=== PATIENT | male | born 1950 | race Caucasian/White ===

== ENCOUNTER 2016-02-14 06:57 | Day surgery (SDC) | payer MEDICARE, OTHER ==
[2016-02-09 14:17] VITALS: BMI 40.2
[~2016-02-14 06:57] MED LIST: LACTATED RINGERS 1,000 ML IV SCH; LIDOCAINE 1% 20 ML VIAL (10MG/ML) FOR IV START INTRADERMA PRN
[2016-02-14] MEDS ORDERED: LACTATED RINGERS 1,000 ML IV ONE (07:02)
[2016-02-14 07:20] VITALS: TEMP 98.1
[2016-02-14] MEDS ORDERED: PROPOFOL 10 MG/ML 20 ML VIAL IV ONE (08:31)
[2016-02-14] MEDS ORDERED: LIDOCAINE 1% INJ 10MG/ML (20 ML MDV) ONE (08:31)
[2016-02-14 08:57] VITALS: RESP 16
--- NOTE | 2016-02-14 09:01 | P.PCN ---
Date of Procedure: 02/14/16 Procedure(s) Performed: Procedure: Colonoscopy and biopsy. Preoperative diagnosis: Screening for neoplasia, patient has history of polyps. Postoperative diagnosis: 1. Diverticulosis with no evidence of acute diverticulitis or strictures. 2. Diminutive polyp in the distal sigmoid biopsied but no large polyps or cancer. Preparation: HalfLytely prep. Sedation: Was provided by anesthesia. Brief clinical history: The patient is a 65-year-old male who is scheduled for this evaluation for screening for neoplasia because of history of polyps. He had 2 colonoscopies in the past, 5 years ago which did not reveal any polyps, but 3 years prior to that he had adenomatous polyps removed. The patient has no abdominal complaints, bleeding or anemia. Procedure: With the patient on his left lateral decubitus position and after informed consent and adequate sedation, the perianal area was inspected and it did not show any fissures or fistulas. There were no masses felt on digital rectal examination. The Olympus CFQ 160L video colonoscope was then inserted in the rectum in the usual fashion and advanced to the cecum. There were multiple diverticular orifices seen scattered along the length of the bowel, more on the left side, with no evidence of acute diverticulitis or strictures. There was a diminutive polyp in the distal sigmoid which was biopsied but there were no large polyps or tumors. The mucosa appeared healthy. I retroflexed endoscope in the rectum before the endoscope was withdrawn. The patient tolerated the procedure well. Plan: The patient was reassured. Discussed dietary measures. He will follow up with you as planned and I recommended a repeat exam in 5 years.
[2016-02-14 09:21] VITALS: BP 113/76; PULSE 70
== END 2016-02-14 09:35 | disposition home or self-care (01) ==
LOC: ORWHC2ENDO 06:57
DX: Z12.11 Encounter for screening for malignant neoplasm of colon (principal); Z86.010 Personal history of colon polyps; D12.5 Benign neoplasm of sigmoid colon; K57.30 Diverticulosis of large intestine without perforation or abscess without bleeding; I10 Essential (primary) hypertension; G62.9 Polyneuropathy, unspecified; M10.9 Gout, unspecified; F17.200 Nicotine dependence, unspecified, uncomplicated; Z79.82 Long term (current) use of aspirin; Z79.899 Other long term (current) drug therapy
CPT/HCPCS: 88305; 45380; J2001; J2704; 99153

== ENCOUNTER → 2016-11-10 | Outpatient (CLI) | payer MEDICARE, OTHER ==
--- NOTE | 2016-11-10 10:37 | ECHOF ---
Referral Reason:R60.0 localized edema MEASUREMENTS -------- HEIGHT: 182.9 cm WEIGHT: 139.3 kg BP: RVIDd: 3.4 cm (< 3.3) IVSd: 1.3 cm (0.6 - 1.1) LVIDd: 4.5 cm (3.9 - 5.3) LVPWd: 1.4 cm (0.6 - 1.1) IVSs: 1.4 cm LVIDs: 4.4 cm LVPWs: 1.2 cm Ao Diam: 4.1 cm (2.0 - 3.7) AV Cusp: 2.3 cm (1.5 - 2.6) LA Diam: 3.3 cm (2.7 - 3.8) MV EXCURSION: 22.256 mm (> 18.000) MV EF SLOPE: 77 mm/s (70 - 150) EPSS: 0.7 cm MV E Jaguar: 0.48 m/s MV DecT: 238 ms MV A Jaguar: 0.55 m/s MV E/A Ratio: 0.87 RAP: 5.00 mmHg RVSP: 20.73 mmHg FINDINGS -------- Sinus rhythm. Morbid Obesity The left ventricular size is normal. There is mild concentric left ventricular hypertrophy. Overall left ventricular systolic function is normal with, an EF between 55 - 60 %. The right ventricle is mild to moderately enlarged. The left atrial size is normal. The right atrial size is normal. The aortic valve is trileaflet, and appears structurally normal. No aortic stenosis or regurgitation. Mild mitral regurgitation is present. Mild tricuspid regurgitation present. There is no evidence of pulmonary hypertension. The right ventricular systolic pressure, as measured by Doppler, is 20.73mmHg. The pulmonic valve was not well visualized. The aortic root size is normal. There is no pericardial effusion. CONCLUSIONS -------- 1. Morbid Obesity 2. The right ventricular systolic pressure, as measured by Doppler, is 20.73mmHg. 3. The pulmonic valve was not well visualized. 4. The aortic root size is normal. 5. There is no pericardial effusion. 6. The left ventricular size is normal. 7. There is mild concentric left ventricular hypertrophy. 8. Overall left ventricular systolic function is normal with, an EF between 55 - 60 %. 9. The right ventricle is mild to moderately enlarged. 10. The aortic valve is trileaflet, and appears structurally normal. No aortic stenosis or regurgitation. 11. Mild mitral regurgitation is present. 12. Mild tricuspid regurgitation present. 13. There is no evidence of pulmonary hypertension. RITUAL CIRCUMCISER: Lorena Yo RDCS
== END | disposition home or self-care (01) ==
LOC: RADECHMAIN 08:05
PROVIDERS: ATTEND Family Medicine
DX: I08.1 Rheumatic disorders of both mitral and tricuspid valves (principal); E66.01 Morbid (severe) obesity due to excess calories
CPT/HCPCS: 93306

== ENCOUNTER → 2018-08-30 | Outpatient (CLI) | payer MEDICARE, OTHER ==
--- NOTE | 2018-08-30 08:17 | CTL ---
EXAMINATION TYPE: CT Low Dose Lung DATE OF EXAM ORDERED: 08/30/2018 COMPARISON: HISTORY: . Low Dose CT Lung Screening CT DLP: [address] CTDI: 1.68 mGy IV CONTRAST USED: None. SCREENING VISIT: First visit COMPARISON: None. TECHNIQUE: Low dose computed tomography scan was performed through the chest at 1 millimeter thick se ctions and reconstructed images in the coronal plane at [address] DIAGNOSTIC QUALITY: Streak artifact limits portions of the study. FINDINGS: LUNG NODULES: Right lun nodules are identified one within the lower lobe, measures 3.6 mm image 32 and the seco nd within the right upper lobe measures 5 mm image 24. No left-sided nodules are identified. LUNGS: COPD: Severity: Mild Fibrosis: Severity:None Lymph nodes: None Other findings: None RIGHT PLEURAL SPACE: Effusion: None Calcification: None Thickening: None Pneumothorax: None LEFT PLEURAL SPACE: Effusion: None Calcification: None Thickening: None Pneumothorax: None HEART: Heart Size: Mildly enlarged Coronary calcification: Mild Pericardial effusion: None OTHER FINDINGS: Upper abdomen: No significant abnormality Bony thorax: Degenerative changes Supraclavicular region: No significant abnormalityOther: No significant abnormalityI IMPRESSION: 1. 2 nodules are identified right lung. RECOMMENDATION: Follow-up screening in one year. Smoking cessation recommended. CT LUNG RAD: LUNG RAD CATEGORY 2 benign
== END | disposition home or self-care (01) ==
LOC: RADCTMAIN 07:16
PROVIDERS: ATTEND Family Medicine
DX: R91.8 Other nonspecific abnormal finding of lung field (principal); Z87.891 Personal history of nicotine dependence

== ENCOUNTER → 2018-09-13 | Outpatient (CLI) | payer MEDICARE, OTHER ==
[~2018-09-13] MED LIST changes: +DOBUTamine DRIP for NUC MED 500 MG in DEXTROSE/WATER 1 250ML.BAG IV ONE; -LACTATED RINGERS 1,000 ML IV SCH; -LIDOCAINE 1% 20 ML VIAL (10MG/ML) FOR IV START INTRADERMA PRN; +REGADENOSON 0.4 MG/5 ML SYRINGE IV ONE
--- NOTE | 2018-09-13 12:43 | NM ---
"EXAMINATION TYPE: NM stress lexiscan cardiolite DATE OF EXAM: 09/13/2018 COMPARISON: NONE HISTORY: Hypertension TECHNIQUE: After the intravenous administration of 10.11 mCi Tc 99m Sestamibi - Cardiolite resting S PECT images acquired 45 minutes post injection. The patient received 0.4mg Lexiscan, 26.8 mCi Tc 99m Sestamibi - Stress images obtained [address] injection FINDINGS: Review of stress and rest SPECT images demonstrates some mild decreased uptake along the anteroseptal left ventricle on stress as compared to rest images. Decreased radiopharmaceutical uptake is noted along the anterolateral left ventricle on both stress and rest images are perhaps more so on stress i mages compared to rest images Gated analysis shows normal wall motion with an estimated left ventricu lar ejection fraction of 60 %. IMPRESSION: Findings compatible with pharmacologically induced left ventricular myocardial ischemia along the ant eroseptal wall and also possible kelli-infarct pharmacologically induced ischemia inferior wall left v entricle A Yellow level critical message alert has been initiated for Maria R Gloria DO via the [employer] 36 0 | Critical Results System on 09/13/2018 12:40 PM. This message alert has been sent to Maria R Gloria DO via the preferences provided by the clinician for the receipt of Radiology Critical Findings. [facility] ID [id number]."
--- NOTE | 2018-09-13 13:33 | P.STRESS ---
- Stress Test Note Stress Test Results/Findings: Exam Performed: NM stress lexiscan cardiolite Exam Date: 09/13/18 Reason for Exam: CHEST PAIN/SHORT OF BREATH Height: 6 ft 1 in Weight: 141.521 kg Protocol: LEXISCAN Stage: N/A Duration of Exercise: 5 MINUTES Resting Heart Rate: 59 Resting Blood Pressure: 100/68 Maximum Achieved Heart Rate: 76 Maximum Achieved Blood Pressure: 123/61 85% PMHR: N/A 100% PMHR: N/A METS: N/A Technologist Comment: Stress Test Results/Findings: Baseline heart rate 59 beats a minute Baseline blood pressure 100/68 mmHg Twelve-lead ECG shows sinus rhythm with normal ST segments Patient received Lexiscan infusion per protocol No ST segment abnormalities noted no arrhythmias noted Nuclear portion will be reported separately Dobutamine stress echo was canceled on account of an enlarged aortic root of about 4.5 cm
--- NOTE | 2018-09-13 19:29 | ECHOF ---
Referral Reason:I25.9 Chronic ischemic heart disease, unspecified MEASUREMENTS -------- HEIGHT: 185.4 cm WEIGHT: 141.5 kg BP: RVIDd: 3.4 cm (< 3.3) IVSd: 1.2 cm (0.6 - 1.1) LVIDd: 4.8 cm (3.9 - 5.3) LVPWd: 1.3 cm (0.6 - 1.1) IVSs: 1.9 cm LVIDs: 3.4 cm LVPWs: 2.0 cm Ao Diam: 4.5 cm (2.0 - 3.7) AV Cusp: 2.5 cm (1.5 - 2.6) LA Diam: 2.9 cm (2.7 - 3.8) EPSS: 0.7 cm MV E Jaguar: 0.51 m/s MV DecT: 283 ms MV A Jaguar: 0.60 m/s MV E/A Ratio: 0.84 RAP: 5.00 mmHg RVSP: 39.56 mmHg MV EF SLOPE: 103.35 mm/s (70 - 150) MV EXCURSION: 1.95 cm (> 18.000) FINDINGS -------- Sinus rhythm. This was a technically difficult study with suboptimal views. The left ventricular size is normal. There is mild concentric left ventricular hypertrophy. Overa ll left ventricular systolic function is normal with, an EF between 55 - 60 %. The right ventricle is normal in size. The left atrial size is normal. The right atrium was not well visualized. Lumason used Interatrial and interventricular septum intact. The aortic valve is trileaflet and appears structurally normal. There is mild aortic valve sclerosi s without stenosis. There is no evidence of aortic regurgitation. There is no evidence of aortic stenosis. Mild mitral annular calcification present. Mild tricuspid regurgitation present. There is mild pulmonary hypertension. The right ventricular systolic pressure, as measured by Doppler, is 39.56mmHg. There is no pulmonic regurgitation present. The aortic root and ascending aorta are dilated measuring up to (enter manually) mm. There is no pericardial effusion. CONCLUSIONS -------- 1. Sinus rhythm. 2. This was a technically difficult study with suboptimal views. 3. The left ventricular size is normal. 4. There is mild concentric left ventricular hypertrophy. 5. Overall left ventricular systolic function is normal with, an EF between 55 - 60 %. 6. The right ventricle is normal in size. 7. The left atrial size is normal. 8. The right atrium was not well visualized. 9. Lumason used 10. Interatrial and interventricular septum intact. 11. The aortic valve is trileaflet and appears structurally normal. 12. There is mild aortic valve sclerosis without stenosis. 13. There is no evidence of aortic regurgitation. 14. There is no evidence of aortic stenosis. 15. Mild mitral annular calcification present. 16. Mild tricuspid regurgitation present. 17. There is mild pulmonary hypertension. 18. The right ventricular systolic pressure, as measured by Doppler, is 39.56mmHg. 19. There is no pulmonic regurgitation present. 20. The aortic root and ascending aorta are dilated measuring up to (enter manually) mm. 21. There is no pericardial effusion. MERCHANDISE COMPLAINT ADJUSTER: Suzy Bravo RDCS
== END | disposition home or self-care (01) ==
LOC: RADNMMAIN 08:53
PROVIDERS: ATTEND Family Medicine
DX: I08.3 Combined rheumatic disorders of mitral, aortic and tricuspid valves (principal); I27.20 Pulmonary hypertension, unspecified; I10 Essential (primary) hypertension
CPT/HCPCS: 93017; 78452; C8929; A9500; J2785; Q9950; 93306

== ENCOUNTER → 2018-09-17 | Outpatient (CLI) | payer MEDICARE, OTHER ==
[2018-09-17 11:03] LABS: HGB 16.5 gm/dL (13.0-17.5); MCH 30.8 pg (25.0-35.0); MCHC 32.3 g/dL (31.0-37.0); MCV 95.4 fL (80.0-100.0); Mean Platelet Volume 7.8; Platelet Count 178 k/uL (150-450); RBC 5.34 m/uL (4.30-5.90); RDW 15.8 % (11.5-15.5); WBC 7.4 k/uL (3.8-10.6)
[2018-09-17 11:11] LABS: African American GFR (CKD) >90 (>60 ml/min/1.73 sqM); Anion Gap 10 mmol/L; Blood Urea Nitrogen 17 mg/dL (9-20); Carbon Dioxide 31 mmol/L (22-30); Chloride 98 mmol/L (98-107); Non-African American GFR(CKD) 79 (>60 ml/min/1.73 sqM); Potassium 4.2 mmol/L (3.5-5.1); Sodium 139 mmol/L (137-145)
== END | disposition home or self-care (01) ==
LOC: LABPAT 09:44
PROVIDERS: ATTEND Internal Medicine Cardiovascular Disease
DX: Z01.812 Encounter for preprocedural laboratory examination (principal); I10 Essential (primary) hypertension; R07.9 Chest pain, unspecified
CPT/HCPCS: 36415; 80051; 82565; 84520; 85027

== ENCOUNTER → 2018-09-27 | Day surgery (SDC) | payer MEDICARE, OTHER ==
[2018-09-24 10:01] VITALS: BMI 40.1
[~2018-09-27] MED LIST changes: +ALPRAZolam 0.25 MG TAB PO PRN; +ALPRAZolam 0.5 MG TAB PO PRN; +ASPIRIN 325 MG TAB PO STA; +ATORVASTATIN 80 MG TAB PO STA; -DOBUTamine DRIP for NUC MED 500 MG in DEXTROSE/WATER 1 250ML.BAG IV ONE; +IOPAMIDOL-370 100ML BTL INJ ONE; +IOPAMIDOL-370 50ML BTL INJ ONE; +LIDOCAINE 1% INJ 10MG/ML (20 ML MDV) ONE; +LIDOCAINE 1% INJ 10MG/ML (20 ML MDV) SQ ONE; +MIDAZOLAM (PF) 2 MG/2 ML VIAL IVP ONE; +NITROGLYCERIN SL TABS 0.4 MG TAB SUBLINGUAL PRN; -REGADENOSON 0.4 MG/5 ML SYRINGE IV ONE; +RX INFO: IV CONTRAST WAS GIVEN 1 EACH MISC MISCELLANE PRN; +SODIUM CHLORIDE 0.9% 1,000 ML IV ONE; +SODIUM CHLORIDE 0.9% 1,000 ML in EMPTY BAG 1 BAG IV ONE; +fentaNYL (PF) 50 MCG/ML 2 ML AMP IVP ONE; +fentaNYL (PF) 50 MCG/ML 2 ML AMP ONE
[2018-09-27 10:05] VITALS: RESP 16; TEMP 97.8
[2018-09-27 17:56] VITALS: BP 118/78; PULSE 64
--- NOTE | 2018-09-27 18:30 | CC ---
CARDIAC CATHETERIZATION REPORT INDICATION: Atypical chest pain and shortness of breath with an abnormal stress test. PROCEDURE NOTE: After obtaining informed consent, left heart catheterization, coronary angiogram and aortogram were performed via the right femoral artery using standard Matti catheters. Patient tolerated the procedure well without any obvious immediate complications. A femoral angiogram was performed and Angio-Seal was deployed for hemostasis. Patient received moderate conscious sedation, and total sedation time was 32 minutes. The right coronary artery had an ectopic origin and we went through multiple catheter exchanges to engage the right coronary artery. Ultimately we selectively engaged the right coronary artery using an Amplatz right catheter. I also performed an aortogram which shows ascending aortic aneurysm. I did this to locate the right coronary artery. FINDINGS: HEMODYNAMICS: Left ventricular end-diastolic pressure is 10 mm. There is no significant gradient across the aortic valve. LEFT VENTRICULOGRAM: Left ventriculogram was not performed. AORTOGRAM: Aortogram was performed to locate the right coronary artery. Ascending aorta appears aneurysmally dilated. ANGIOGRAPHIC DATA: Left main coronary artery is a normal-sized vessel and is free of stenosis. Divides into left anterior descending coronary artery and circumflex coronary artery. Circumflex coronary artery and its branches are free of significant stenosis. LAD shows a 30% stenosis in the proximal part. Right coronary artery is a nondominant vessel and is free of significant stenosis. CONCLUSIONS: 1. Mild nonobstructive coronary artery disease involving left anterior descending coronary artery. 2. Ascending aortic aneurysm. PLAN: I reviewed angiographic data with the patient and told him that his stress test is a false-positive stress test. I am going to perform a CT scan of his chest to assess the ascending aorta, which was noted as dilated on noninvasive testing. MMODL / IJN: [id number] /
--- NOTE | 2018-09-27 18:36 | LTR ---
September 27, 2018 To: Dr. Maria R Gloria Re: Ruben Rodríguez (48) Dear Dr. Gloria, I performed cardiac catheterization on Ruben Rodríguez. A detailed catheterization note is enclosed for your records. In brief, the cardiac catheterization revealed mild nonobstructive coronary artery disease. I believe the patient's stress test is a false- positive stress test. He does have ascending aortic aneurysm, and I will get a CT scan of the chest done sometime next week to accurately assess the aortic root. Thank you for giving us the privilege of participating in the care of this pleasant gentleman. Sincerely, MD JOSE Beth / KONGN: [id number] /
== END ==
LOC: CATHCVL 09:17
PROVIDERS: ATTEND Internal Medicine Cardiovascular Disease
DX: I25.10 Atherosclerotic heart disease of native coronary artery without angina pectoris (principal); R94.39 Abnormal result of other cardiovascular function study; I10 Essential (primary) hypertension; I71.2 Thoracic aortic aneurysm, without rupture; R06.02 Shortness of breath; Z79.899 Other long term (current) drug therapy; Z82.49 Family history of ischemic heart disease and other diseases of the circulatory system
CPT/HCPCS: 93458; 93567; C1760; C1894; C1769; J2001; J3010; Q9967 ×2; J2250

== ENCOUNTER → 2018-10-09 | Outpatient (CLI) | payer MEDICARE, OTHER | END | disposition home or self-care (01) | LOC: RADUSWWP 08:15 | PROVIDERS: ATTEND Family Medicine | DX: I70.213 Atherosclerosis of native arteries of extremities with intermittent claudication, bilateral legs (principal) | CPT/HCPCS: 93922 ==

== ENCOUNTER → 2018-10-14 | Outpatient (CLI) | payer MEDICARE, OTHER ==
[2018-10-14 08:11] LABS: African American GFR (CKD) >90 (>60 ml/min/1.73 sqM); Blood Urea Nitrogen 15 mg/dL (9-20)
--- NOTE | 2018-10-14 10:17 | CT ---
EXAMINATION TYPE: CT angio chest DATE OF EXAM: 10/14/2018 COMPARISON: none HISTORY: Thoracic aortic aneurysm w/o rupture CT DLP: 746.4 mGycm CONTRAST: CTA thoracic aorta with 3-D reconstruction is performed and with IV Contrast, patient injected with 1 00 mL of Isovue 370. Contrast CTA of the thoracic aorta was performed from the lung apex through the upper abdomen. 3D re construction imaging obtained at a separate workstation. CT Chest: THORACIC AORTA: No evidence for thoracic aortic aneurysm. Mild atheromatous changes seen. There is n o evidence for dissection or periaortic collection. LUNGS: The lungs are clear and free of infiltrate or atelectasis. No pulmonary nodule or mass is det ected. No pleural effusion or CT evidence of interstitial lung disease. MEDIASTINUM: No evidence for mediastinal hematoma. The heart is not enlarged. No evidence for med iastinal mass or adenopathy. HILAR STRUCTURES: No evidence for mass. No hilar adenopathy is appreciated. OTHER: No significant abnormality. IMPRESSION- No evidence for thoracic aortic aneurysm.
== END | disposition home or self-care (01) ==
LOC: RADCTMAIN 07:28
PROVIDERS: ATTEND Internal Medicine Cardiovascular Disease
DX: I71.2 Thoracic aortic aneurysm, without rupture (principal)
CPT/HCPCS: 82565; 84520; 71275; 36415; Q9967

== ENCOUNTER → 2021-02-19 | Outpatient (CLI) | payer MEDICARE, OTHER ==
--- NOTE | 2021-02-22 10:27 | MR ---
EXAMINATION TYPE: MR Prostate wo/w con DATE OF EXAM: 02/19/2021 COMPARISON: None. IMAGE QUALITY: . INDICATION: Prostate cancer. PSA: 8.0 ng/ml on March 01, 2020 Recent Biopsy and Date: October 17, 2019 Pathology Report (If Applicable): Right lateral base adenocarcinoma [place] grade 3+4 = 7 involving 1 .6 mm about 40% tissue involvement. Right base adenocarcinoma [place] score 3+4 = 7 involving 0.6 mm, 12% tissue involvement. Right lateral mid adenocarcinoma [place] grade 3+4 = 7 involving 0.8 mm or 8 % tissue involvement. Left base focal high grade PIN. Atypical asymmetric proliferation right transit ional zone biopsies. TECHNIQUE: Examination was performed using a 3T MRI without an endorectal coil. Multiparametric imaging was perf ormed with T2 mutliplanar sequences, axial diffusion weighted imaging and dynamic contrast enhanced i maging, utilizing 13.5 mL intravenous Gadavist gadolinium contrast. FINDINGS: Exam is suboptimal as there is some motion artifact degradation present. PROSTATE VOLUME: 4.0 cm SI x 3.6 cm AP x 4.6 cm LR Vol= 34.7 cc Predicted PSA equals 4.16 PSA DENSITY: 0.23 ng/ml/cc T1 precontrast images show no suspicious hyperintense material to suggest acute blood product which c orrelates with patient's biopsy date. The peripheral zone shows some heterogeneous indistinct areas of hypointense signal on ADC mapping in the mid to basilar segments. Findings extend greater to the left aspect. No increased signal on diff usion weighted images is seen. Transition zone shows overall heterogeneity with more indistinct slight hypointense area on T2 weight ed images mid to apical level on the right slightly bulging anteriorly axial image 19 measuring appro ximately 1.9 x 1.2 cm mid zone to basilar level on coronal images with sagittal increased signal on d iffusion-weighted imaging measuring just over 1.5 cm long axis seen best image 88 series 901. Seminal vesicles are symmetric and felt within normal limits. No adjacent pelvic adenopathy is seen. Bilateral groin lymph nodes are present slightly more prominent on the left. Some diverticula in the sigmoid colon are incidentally seen. IMPRESSION: A focus of clinically significant cancer is thought present. Vague suspicious area mid to basilar reg ion on the right abutting the bladder base. Some limitation from motion artifact. No definitive extra capsular extension. Highest Assessment Category: 4 or 5 MRI Stage: T0 N0 M0 based on review of pelvic images. False negative rates for MRI range from 5-20% depending on risk profile. Assessment Categories: 1 ? Very low (clinically significant cancer is highly unlikely to be present) 2 ? Low (clinically significant cancer is unlikely to be present) 3 ? Intermediate (the presence of clinically significant cancer is equivocal) 4 ? High (clinically significant cancer is likely to be present) 5 ? Very high (clinically significant cancer is highly likely to be present)
== END | disposition home or self-care (01) ==
LOC: RADMRIMAIN 07:48
PROVIDERS: ATTEND Urology
DX: C61 Malignant neoplasm of prostate (principal)
CPT/HCPCS: 72197; A9585

== ENCOUNTER → 2021-03-31 | Outpatient (CLI) | payer MEDICARE, OTHER ==
[2021-03-31 14:53] LABS: Basophils # (A) 0.05 X 10*3/uL (0.00-0.10); Basophils % (A) 0.6 %; Eosinophils # (A) 0.28 X 10*3/uL (0.04-0.35); Eosinophils % (A) 3.6 %; HCT 47.3 % (39.6-50.0); Immature Grans, Automated 0.5 %; Lymphocytes # (A) 1.87 X 10*3/uL (0.90-5.00); Lymphocytes % (A) 24.3 %; MCH 30.1 pg (27.0-32.0); MCHC 31.7 g/dL (32.0-37.0); MCV 94.8 fL (80.0-97.0); Mean Platelet Volume 10.7 fL (9.5-12.2); Monocytes # (A) 0.71 X 10*3/uL (0.20-1.00); Monocytes % (A) 9.2 %; NRBC Per 100 WBC 0 /100 WBCS (0.0-0.0); Neutrophils # (A) 4.75 X 10*3/uL (1.80-7.70); Neutrophils % (A) 61.8 %; Platelet Count 151 X 10*3/uL (140-440); RBC 4.99 X 10*6/uL (4.40-5.60); RDW 14.5 % (11.5-14.5)
== END | disposition home or self-care (01) ==
LOC: LABPAT 08:47
PROVIDERS: ATTEND Urology
DX: Z01.812 Encounter for preprocedural laboratory examination (principal)
CPT/HCPCS: 85025

== ENCOUNTER → 2021-04-07 | Day surgery (SDC) | payer MEDICARE, OTHER ==
--- NOTE | 2021-04-06 17:39 | P.GSHP ---
History of Present Illness H&P Date: 04/02/21 Chief Complaint: Prostate Cancer The patient is a 70-year-old white male originally diagnosed with prostate cancer in October 2019. His PSA level at that time was 9.2. 3 of 16 biopsies showed evidence of [place] 7 (3+4) adenocarcinoma, involving the right lateral base, right base, and right lateral mid gland. The Polaris score was 2.9. He chose a course of watchful waiting, but his PSA level increased to 14.50 earlier this year. An MRI shows a high grade lesion of 4-5 at the right base. In view of this, he has been advised to be treated with radiation therapy. He now comes for SpaceOAR implant to reduce the likelihood of rectal toxicity, and fiducial gold markers will also be implanted. - Constitutional Constitutional: Denies chills, Denies fever - Genitourinary (Male) Genitourinary: Reports urinary hesitancy Past Medical History Past Medical History: Diabetes Mellitus, Hypertension Additional Past Medical History / Comment(s): NEUROPATHY HANDS AND FEET, HX OF POLYPS, GOUT, PROSTATE CANCER History of Any Multi-Drug Resistant Organisms: None Reported Past Surgical History: Orthopedic Surgery Additional Past Surgical History / Comment(s): KNEE SURGERY, ABD HERNIA , COLONOSCOPY. Past Anesthesia/Blood Transfusion Reactions: No Reported Reaction Past Psychological History: No Psychological Hx Reported Past Alcohol Use History: Daily Additional Past Alcohol Use History / Comment(s): SMOKES 1/2-1 PPD. SMOKING FOR APPROX 50 YEARS. STATES APPROX 14 DRINKS PER WEEK. Past Drug Use History: None Reported - Past Family History Father Family Medical History: Cancer Additional Family Medical History / Comment(s): STOMACH CANCER Medications and Allergies Home Medications Medication Instructions Recorded Confirmed Type Gabapentin [Neurontin] 900 mg PO TID 02/09/16 04/06/21 History Potassium 99 mg PO DIRECTED PRN 02/09/16 04/06/21 History allopurinoL [Zyloprim] 300 mg PO QAM 02/09/16 04/06/21 History Aspirin [Adult Low Dose Aspirin EC] 325 mg PO DAILY 09/24/18 04/06/21 History Losartan-Hctz 50-12.5 mg [Hyzaar 1 each PO QAM 09/27/18 04/06/21 History 50-12.5] Tamsulosin [Flomax] 0.4 mg PO DAILY 09/27/18 04/06/21 History metFORMIN HCL [Glucophage] 500 mg PO QAM 10/22/18 04/06/21 History Ascorbic Acid [Vitamin C] 1 tab PO DAILY 04/06/21 04/06/21 History Celecoxib [CeleBREX] 200 mg PO QAM 04/06/21 04/06/21 History Cyanocobalamin (Vitamin B-12) 1 tab PO DAILY 04/06/21 04/06/21 History [Vitamin B-12] Furosemide [Lasix] 20 mg PO BID PRN 04/06/21 04/06/21 History Allergies Allergy/AdvReac Type Severity Reaction Status Date / Time No Known Allergies Allergy Verified 04/06/21 09:26 Surgical - Exam - General well developed, well nourished, no distress - Neck no masses, trachea midline - Respiratory normal respiratory effort - Abdomen Abdomen: soft, non tender, no guarding, no rigid, no rebound - Genitourinary normal penis with no external lesions, testicles non-tender - Rectum Rectum: normal sphincter tone, no masses, other (Prostate moderately enlarged and smooth) - Psychiatric oriented to time, oriented to person, oriented to place, speech is normal, memor y intact Assessment and Plan (1) Malignant neoplasm of prostate Status: Acute Code(s): C61 - MALIGNANT NEOPLASM OF PROSTATE SNOMED Code(s): 105163649 Plan: The SpaceOar implant has been reviewed in detail with the patient. He understands that the rationale for this is to create separation between the prostate and rectum, thus reducing the risk of radiation proctitis. The material begins to breakdown 12-13 weeks following implant, and is reabsorbed by the body. Risks include anesthesia, bleeding, infection, and perineal discomfort. He understands that if the rectal wall is perforated the procedure will need to be aborted.
[~2021-04-07] MED LIST changes: -ALPRAZolam 0.25 MG TAB PO PRN; -ALPRAZolam 0.5 MG TAB PO PRN; -ASPIRIN 325 MG TAB PO STA; -ATORVASTATIN 80 MG TAB PO STA; +DEXAMETHASONE SOD PHOSPHATE 4 MG/ML 1 ML VIAL IV ONE; +HYDROmorphone 0.5 MG/0.5 ML SYRINGE IVP PRN; -IOPAMIDOL-370 100ML BTL INJ ONE; -IOPAMIDOL-370 50ML BTL INJ ONE; +KETAMINE 10 MG/ML 20 ML VIAL ONE; +LACTATED RINGERS 1,000 ML IV ONE; +LACTATED RINGERS 1,000 ML IV SCH; +LIDOCAINE 1% (10MG/ML) FOR IV START INTRADERMA PRN; -LIDOCAINE 1% INJ 10MG/ML (20 ML MDV) ONE; -LIDOCAINE 1% INJ 10MG/ML (20 ML MDV) SQ ONE; +LIDOCAINE 2% INJ 20 MG/ML SQ ONE; -MIDAZOLAM (PF) 2 MG/2 ML VIAL IVP ONE; +MIDAZOLAM 2 MG/2 ML VIAL IV PRN; +MIDAZOLAM 2 MG/2 ML VIAL ONE; -NITROGLYCERIN SL TABS 0.4 MG TAB SUBLINGUAL PRN; +ONDANSETRON 4 MG/2 ML VIAL IVP ONE; +PROPOFOL 10 MG/ML 20 ML VIAL IV ONE; -RX INFO: IV CONTRAST WAS GIVEN 1 EACH MISC MISCELLANE PRN; -SODIUM CHLORIDE 0.9% 1,000 ML IV ONE; -SODIUM CHLORIDE 0.9% 1,000 ML in EMPTY BAG 1 BAG IV ONE; +ceFAZolin 3 GM in SODIUM CHLORIDE 0.9% 100 ML IVPB PRN; -fentaNYL (PF) 50 MCG/ML 2 ML AMP IVP ONE
[2021-04-07 07:42] LABS: Glucose,Whole Blood 123 mg/dL (75-99)
--- NOTE | 2021-04-07 10:02 | P.OP ---
Date of Procedure: 04/07/21 Preoperative Diagnosis: Adenocarcinoma of the Prostate Postoperative Diagnosis: Same Procedure(s) Performed: Implantation of Fiducial Gold Markers, SpaceOAR Implant Anesthesia: MAC Surgeon: Klye Rae Estimated Blood Loss (ml): 10 IV fluids (ml): 400 Pathology: none sent Condition: stable Disposition: PACU Indications for Procedure: The patient is a 70-year-old white male originally diagnosed with prostate cancer in October 2019. His PSA level at that time was 9.2. 3 of 16 biopsies showed evidence of [place] 7 (3+4) adenocarcinoma, involving the right lateral base, right base, and right lateral mid gland. The Polaris score was 2.9. He chose a course of watchful waiting, but his PSA level increased to 14.50 earlier this year. An MRI shows a high grade lesion of 4-5 at the right base. In view of this, he has been advised to be treated with radiation therapy. He now comes for SpaceOAR implant to reduce the likelihood of rectal toxicity, and fiducial gold markers will also be implanted. Operative Findings: Excellent separation of prostate and rectum. Description of Procedure: The patient was taken to the operating room and placed in the dorsolithotomy position, with his legs supported in Michael stirrups. The external genitalia was prepped and draped sterilely. The Bruel and Kjaer transrectal ultrasound probe was placed intrarectally. The prostate was imaged. The probe was then placed within the stabilizing stand. A spinal needle was advanced under ultrasonic guidance to the level of the urogenital diaphragm, and lidocaine was used to infiltrate the tissues as the needle was withdrawn. Next, the 3 fiducial gold markers were placed, 1 on the right and 2 on the left. The SpaceOAR needle was then passed through the midline of the perineum, 1-2 cm anterior to the anal opening. The needle was slowly advanced under ultrasonic guidance until the needle tip was located within the fat plane between the prostate and rectum, at the level of the mid prostate gland. The needle was confirmed to be midline on the axial imaging. A small amount of normal saline was injected for hydrodissection. Next, the SpaceOAR components were mixed and loaded into the Y connector per protocol. The Y connector was then connected to the needle, and the components were injected slowly over a course of approximately 12 seconds. A total of 12 ml was injected. Significant distance was created between the prostate and rectum, as desired. It should be noted that at no point was there any concern of rectal perforation. The needle was withdrawn, as well as the transrectal ultrasound probe, and the procedure was terminated. The patient tolerated the procedure well and was taken to the recovery room in stable condition.
[2021-04-07 10:05] VITALS: RESP 16; TEMP 96.8
[2021-04-07 10:54] VITALS: BP 103/67; PULSE 77
== END | disposition home or self-care (01) ==
LOC: OR 07:10
PROVIDERS: ATTEND Urology
DX: C61 Malignant neoplasm of prostate (principal); E11.9 Type 2 diabetes mellitus without complications; I10 Essential (primary) hypertension; E11.42 Type 2 diabetes mellitus with diabetic polyneuropathy; M10.9 Gout, unspecified; R39.11 Hesitancy of micturition; Z98.890 Other specified postprocedural states; Z80.0 Family history of malignant neoplasm of digestive organs; F17.210 Nicotine dependence, cigarettes, uncomplicated; Z79.84 Long term (current) use of oral hypoglycemic drugs; Z79.82 Long term (current) use of aspirin; Z79.899 Other long term (current) drug therapy
CPT/HCPCS: 55874; 55876; 76942; 84132; C1889; J2001; J2250; J1100; J0690; J2405; J3010; J2704

== ENCOUNTER → 2022-06-16 | Outpatient (CLI) | payer MEDICARE, OTHER ==
--- NOTE | 2022-06-16 10:46 | XR ---
EXAMINATION TYPE: XR forearm LT DATE OF EXAM: 06/16/2022 COMPARISON: NONE HISTORY: Pain Two views of the forearm demonstrate that the osseous structures appear to be intact and the joint sp aces appear to be preserved. There is no acute fracture or dislocation. There is a metallic density along the mid diaphysis of the soft tissues adjacent to the radius. Additional smaller metallic densi ty is seen overlying the volar aspect of the subcutaneous tissues of the wrist. Hypertrophic arthropa thy of the elbow joint compatible severe arthropathy. IMPRESSION: 1. Suspect that there are 2 areas of metallic foreign body one at the level of the mid forearm and th e second at the level of the wrist as discussed above.
== END | disposition home or self-care (01) ==
LOC: RADXRMAIN 10:12
PROVIDERS: ATTEND Physical Medicine & Rehabilitation
DX: M79.632 Pain in left forearm (principal); M47.816 Spondylosis without myelopathy or radiculopathy, lumbar region

== ENCOUNTER → 2022-06-23 | Outpatient (CLI) | payer MEDICARE, OTHER ==
--- NOTE | 2022-06-23 13:25 | CT ---
EXAMINATION TYPE: CT lumbar spine wo con DATE OF EXAM: 06/23/2022 COMPARISON: None HISTORY: 72-year-old male Spondylosis without myelopathy or radiculopathy, lumbar region TECHNIQUE: Contiguous axial scanning of the lumbar spine without IV contrast. Coronal and sagittal re constructions performed. CT DLP: 2121.40 mGycm Automated exposure control for dose reduction was used. 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 Mild to moderate degenerative changes left SI joint. Ectatic bilateral common iliac arteries measuring up to 1.7 cm. It has hypertrophic facet arthropathy mid to lower lumbar spine with degenerative grade 1 anterolisth esis L4-L5 and trace grade 1 retrolisthesis L2-L3. Moderate multilevel degenerative disc disease with variably desiccated, narrowed, and bulging discs. Some levels of discussed by complex formation are also present. Ligamentum flavum thickening in the l ower lumbar spine. Overall changes contribute to mild spinal canal stenosis at L1-L2, L2-L3. Focal moderate or severe at L4-L5. On the right, there is moderate to severe neuroforaminal stenosis at L3-L4 and L5-S1. Moderate at L4- L5. On the left, there is severe neural foraminal stenosis at L5-S1 and moderate at L3-L4 and L1-L2. Mild to moderate at additional levels. In addition, lateral disc osteophyte complexes at L5-S1 may impinge the exiting and extraforaminal L5 nerve roots on both sides. IMPRESSION: 1. ADVANCED HYPERTROPHIC FACET ARTHROPATHY. LIGAMENTUM FLAVUM THICKENING LOWER LUMBAR SPINE. DEGENERA TIVE GRADE 1 ANTEROLISTHESIS L4-L5. 2. MODERATE MULTILEVEL DEGENERATIVE DISC DISEASE. 3. OVERALL MODERATE TO SEVERE FOCAL SPINAL CANAL STENOSIS AT L4-L5 AND MILD AT BOTH L1-L2 AND L2-L3. 4. VARIABLE NEUROFORAMINAL STENOSES OUTLINED ABOVE. THIS APPEARS SEVERE ON THE LEFT L5-S1. MODERAT E TO SEVERE ON THE RIGHT AT BOTH L3-L4 AND L5-S1. 5. IN ADDITION, LATERAL DISC OSTEOPHYTE COMPLEXES AT L5-S1 MAY IMPINGE THE EXITING AND EXTRAFORAMINAL L5 NERVE ROOTS ON BOTH SIDES.
== END | disposition home or self-care (01) ==
LOC: RADCTMAIN 11:41
PROVIDERS: ATTEND Physical Medicine & Rehabilitation
DX: M48.062 Spinal stenosis, lumbar region with neurogenic claudication (principal); M47.816 Spondylosis without myelopathy or radiculopathy, lumbar region; M43.12 Spondylolisthesis, cervical region; M25.78 Osteophyte, vertebrae; M99.73 Connective tissue and disc stenosis of intervertebral foramina of lumbar region
CPT/HCPCS: 72131

== ENCOUNTER 2023-05-04 07:27 | Day surgery (SDC) | payer MEDICARE, OTHER ==
[2023-05-03 08:41] VITALS: BMI 36.9
[2023-05-04 07:50] VITALS: RESP 16; TEMP 97.6
[2023-05-04 08:00] LABS: Glucose,Whole Blood 142 mg/dL (70-110)
[2023-05-04] MEDS: LACTATED RINGERS 1,000 ML IV SCH (08:01)
[2023-05-04] MEDS ORDERED: LIDOCAINE 1% INJ 10MG/ML (20 ML MDV) ONE (08:08)
[2023-05-04] MEDS ORDERED: PROPOFOL 10 MG/ML 20 ML VIAL IV ONE (08:08)
--- NOTE | 2023-05-04 08:33 | P.PCN ---
Date of Procedure: 05/04/23 Procedure(s) Performed: BRIEF HISTORY: Patient is a 73-year-old pleasant white male scheduled for an elective colonoscopy as a part of evaluation of prior history of colon polyps. PROCEDURE PERFORMED: Colonoscopywith biopsy. PREOPERATIVE DIAGNOSIS: and history of colon polyps. IV sedation per Anesthesia. PROCEDURE: After informed consent was obtained, the patient, was brought into the endoscopy unit. IV sedation was administered by Anesthesia under continuous monitoring. Digital rectal examination was normal. Initially the Olympus CF-160 flexible video colonoscope was then inserted in the rectum, gradually advanced into the cecum without any difficulty. Careful examination was performed as the scope was gradually being withdrawn. Ileocecal valve and the appendiceal orifice were visualized and appeared normal. Prep was excellent. Mucosa of the cecum, ascending colon, transverse colon, descending colon, sigmoid colon, and rectum appeared normal. scattered diffuse diverticulosis. in the distal rectum there was a 3 mm polyp that was removed by cold biopsy.Retroflexion was performed in the rectum scattered telangiectasia of the distal rectumconsistent with mild radiation proctitis. Small internal hemorrhoids seen. The The patient tolerated the procedure well. IMPRESSION: 3 mm mid rectal polyp status post cold biopsy Scattered diffuse diverticulosis Mild radiation proctitis RECOMMENDATIONS: Findings of this examination were discussed with the patient as well as his family. He was advised to follow with the biopsy results and have a repeat colonoscopy in 5 years.
[2023-05-04 08:46] LABS: Glucose,Whole Blood 131 mg/dL (70-110)
[2023-05-04 09:04] VITALS: BP 121/77
[2023-05-04 09:05] VITALS: PULSE 84
== END 2023-05-04 09:23 | disposition home or self-care (01) ==
LOC: ORWHC2ENDO 07:27
PROVIDERS: ATTEND Internal Medicine Gastroenterology
DX: K62.1 Rectal polyp (principal); K62.7 Radiation proctitis; K57.30 Diverticulosis of large intestine without perforation or abscess without bleeding; K64.8 Other hemorrhoids; I10 Essential (primary) hypertension; M10.9 Gout, unspecified; E11.42 Type 2 diabetes mellitus with diabetic polyneuropathy; E66.01 Morbid (severe) obesity due to excess calories; Z79.84 Long term (current) use of oral hypoglycemic drugs; F17.200 Nicotine dependence, unspecified, uncomplicated; Z86.010 Personal history of colon polyps; Z85.46 Personal history of malignant neoplasm of prostate; Z79.82 Long term (current) use of aspirin; Z79.899 Other long term (current) drug therapy; Z68.36 Body mass index [BMI] 36.0-36.9, adult; Y84.2 Radiological procedure and radiotherapy as the cause of abnormal reaction of the patient, or of later complication, without mention of misadventure at the time of the procedure
CPT/HCPCS: 88305; 45380; J2001; J2704